=== PATIENT | male | born 1955 | race Caucasian/White ===

== ENCOUNTER 2016-09-02 10:30 | Emergency (ER) | payer OTHER ==
[~2016-09-02] VITALS: Ht 167.6 cm; Wt 84.5 kg
[2016-09-02 10:33] VITALS: Ht 167.6 cm; Wt 84.5 kg
[2016-09-02 12:28] LABS: ADD UMIC YES; URINE BILIRUBIN (Dip) 2+ (NEGATIVE); URINE BLOOD (Dip) 3+ (NEGATIVE); URINE COLOR DK. RED (YELLOW); URINE GLUCOSE (Dip) NEGATIVE (NEGATIVE); URINE KETONES (Dip) TRACE (NEGATIVE); URINE LEUKOCYTE ESTERASE (Dip) 1+ (NEGATIVE); URINE NITRITE (Dip) POSITIVE (NEGATIVE); URINE TOTAL PROTEIN (Dip) 4+ (NEGATIVE); URINE UROBILINOGEN (Dip) 1.0 E.U./dL (0.1-1.0)
[2016-09-02 12:46] LABS: BACTERIA,URINE MANY; ICTOTEST NEGATIVE (NEGATIVE); URINE RBCS >200 /HPF (0)
[2016-09-02] MEDS ORDERED: CIPROFLOXACIN 500 MG TAB PO ONE (13:00)
[2016-09-02] MEDS ORDERED: LIDOCAINE 1% (MDV) 20 ML INJ SC ONE (13:00)
[2016-09-02] MEDS ORDERED: CEFTRIAXONE 1 GM INJ IM ONE (13:00)
--- NOTE | 2016-09-02 13:34 | RADRPT ---
PROCEDURE: CT Abdomen and Pelvis without contrast. CLINICAL INDICATION: Abdominal pain TECHNIQUE: CT scan of the abdomen and pelvis was performed on a multidetector high-resolution CT s cann without intravenous contrast. Coronal and sagittal reformatted images were obtained from the axial source images. Images were reviewed on a high-resolution PACS workstation. The total exam CTD I equals 17mGy and the total exam DLP equals 994mGy-cm. One or more of the following dose reduction techniques were used: Automated exposure control, Adjustment of the mA and/or kV according to patien t size, and/or use of iterative reconstruction technique. COMPARISON: None. FINDINGS: Evaluation of the solid organs is limited given the lack of intravenous contrast administration. The lung bases are clear. The liver, pancreas, spleen, and adrenals are grossly unremarkable. No focal pericholecystic inflammatory changes. Mild distal bilateral hydroureter without evidence of hydronephrosis. No renal or ureteral stone. B ilateral renal cysts. No bowel obstruction. Normal-caliber appendix. No significant retroperitoneal lymphadenopathy, ascites or evidence of pneumoperitoneum. Aortoiliac atherosclerosis. 5.6 x 4.7 x 4.9 centimeter rounded hyperdense mass-like structure identified within the posterior bl adder. Irregular segmental areas of bladder wall thickening are also seen with multiple small bladder diver ticula . Degenerative changes of the spine. Laminectomy changes at L1-2. Grade 1 retrolisthesis of L5-S1. IMPRESSION: 5.6 x 4.7 x 4.9 centimeter rounded hyperdense mass-like structure identified within the posterior bl adder. The differential considerations are led by a hematoma. However, the possibility of a superimp osed infection or underlying bladder neoplasm cannot be excluded. Recommend correlation with direct visualization/cystoscopy. Mild distal bilateral hydroureter is seen without evidence of hydronephrosis. Irregular segmental areas of bladder wall thickening are also seen with multiple small bladder diver ticula . No renal or ureteral stone. RPTAT: AA .Jaylan Doherty MD, Date Time Electronically viewed and signed by .Jaylan Doherty MD, on 09/02/2016 13:34 .T/
[2016-09-02] MEDS ORDERED: CIPR500T4 PO (13:55)
--- NOTE | 2016-09-02 14:04 | ERD ---
ER Documentation Chief Complaint Date/Time DATE: 09/02/16 TIME: 14:02 Chief Complaint Complains of blood in the urine HPI 61-year-old male presents with blood in the urine since last night. His with clots and he has a slight warm sensation. 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 He has no fevers, vomiting, significant abdominal pain. Denies flank pain. ROS All systems reviewed and are negative except as per history of present illness. Medications Home Meds Active Scripts Ciprofloxacin Hcl* (Ciprofloxacin Hcl*) 500 Mg Tablet, 500 MG PO BID for 7 Days , TAB Prov:KENTRELL WILSON MD 09/02/16 Allergies Allergies: Coded Allergies: No Known Allergy (Verified Allergy, Unknown, 09/19/06) PMhx/Soc History of Surgery: No Anesthesia Reaction: No Hx Neurological Disorder: No Hx Respiratory Disorders: No Hx Cardiac Disorders: No Hx Psychiatric Problems: No Hx Miscellaneous Medical Probl: Yes (back pain,neurogenic bladder) Hx Alcohol Use: No Hx Substance Use: No Hx Tobacco Use: No Physical Exam Vitals Vital Signs Date Time Temp Pulse Resp B/P Pulse Ox O2 Delivery O2 Flow Rate FiO2 09/02/16 10:33 97.9 84 20 170/88 96 Physical Exam Const: [] Head: Atraumatic Eyes: Normal Conjunctiva ENT: Normal External Ears, Nose and Mouth. Neck: Full range of motion..~ No meningismus. Resp: Clear to auscultation bilaterally Cardio: Regular rate and rhythm, no murmurs Abd: Soft, non tender, non distended. Normal bowel sounds Skin: No petechiae or rashes Back: No midline or flank tenderness Ext: No cyanosis, or edema Neur: Awake and alert Psych: Normal Mood and Affect Results 24 hrs Laboratory Tests Test 09/02/16 11:32 Urine Bacteria MANY Urine Bilirubin 2+ Urine Clarity CLEAR Urine Color DK. RED Urine Glucose NEGATIVE% Urine Hemoglobin 3+ Urine Ictotest NEGATIVE Urine Ketones TRACE Urine Leukocyte Esterase 1+ Urine Microscopic RBC >200/HPF Urine Microscopic WBC 5-10/HPF Urine Nitrite POSITIVE Urine Specific [place] 1.020 Urine Total Protein 4+ Urine Urobilinogen 1.0 E.U./dL Urine pH 8.0 Current Medications Medications (Trade) Dose Ordered Sig/Fariba Route PRN Reason Start Time Stop Time Status Last Admin Dose Admin Ceftriaxone Sodium (Rocephin) 1 gm ONCE ONCE IM 09/02/16 13:00 09/02/16 13:01 DC 09/02/16 13:24 Lidocaine (Xylocaine 1% (Mdv) 20 ml) 20 ml ONCE ONCE SC 09/02/16 13:00 09/02/16 13:01 DC 09/02/16 13:24 Ciprofloxacin (Cipro) 500 mg ONCE ONCE PO 09/02/16 13:00 09/02/16 13:01 DC 09/02/16 13:24 Procedures/MDM Urine shows positive hemoglobin, nitrites and leukocytes and was sent for culture. Given the degree of gross blood a CT abdomen pelvis was performed which showed irregular shaped bladder with diverticula with likely hematoma in posterior bladder. No other acute findings. Patient was given Rocephin 1 g IM and Cipro 500 mg of mouth. Patient presents with signs of UTI and hematuria, likely exacerbated by neurogenic bladder diverticula. There are no signs or symptoms to suggest anemia, sepsis, patient currently appears safe for outpatient management. We discharged home with prescription of Cipro, instructions for clear fluids and referral to urology for further evaluation treatment. Patient was advised to return for fevers, vomiting, new or worsening symptoms. Patient is able to urinate with blood but patient was also advised to return for inability urinate given the size of the clot noted on CT scan. Departure Diagnosis: Primary Impression: UTI (urinary tract infection) Urinary tract infection type: acute cystitis Hematuria presence: with hematuria Qualified Code: N30.01 - Acute cystitis with hematuria Additional Impression: Hematuria Condition: Stable Patient Instructions: Understanding Urinary Tract Infections (UTIs), Hematuria Referrals: LEA SOLORZANO MD JOSE MANUEL,MALCOM Schaffer MD Additional Instructions: There are signs of urinary tract infection which are likely cause of symptoms especially given chronic findings and bladder. Recheck for fevers, vomiting, new symptoms. Recommend urology for cystoscopy for persistent bleeding. Recheck otherwise for persistent bleeding over 48 hours, or new worsening symptoms. May need authorization from primary care doctor for urology visit KENTRELL WILSON MD Sep 02, 2016 14:04
== END 2016-09-02 14:04 | disposition home or self-care (01) ==
LOC: FTE 10:30
DX: N30.01 Acute cystitis with hematuria (principal)
CPT/HCPCS: 74176; 81001; 81003; 87086; J0696; Z7610; 96372

== ENCOUNTER 2017-04-22 05:42 | Emergency (ER) | payer OTHER ==
[~2017-04-22] VITALS: Ht 177.8 cm; Wt 83.0 kg
[~2017-04-22 05:42] MED LIST: CIPR500T4 PO
[2017-04-22 05:43] VITALS: Ht 177.8 cm; Wt 83.0 kg
[2017-04-22] MEDS ORDERED: morphine 4 MG/ML VIAL IV STA (05:52)
[2017-04-22] MEDS ORDERED: SOD CHLORIDE 0.9% 1,000 ML IV STA ×2 (05:52→08:17)
[2017-04-22] MEDS ORDERED: ONDANSETRON 4 MG INJ IV STA ×2 (05:52→08:17)
[2017-04-22] MEDS ORDERED: KETOROLAC 30 MG INJ IV STA (05:52)
[2017-04-22] MEDS ORDERED: ATEN50TA PO (06:14)
[2017-04-22 06:25] VITALS: BP 147/74; RESP 18
[2017-04-22 06:28] LABS: BASOPHIL # 0.1 10^3/ul (0.0-0.1); BASOPHILS % 1.2 % (0.0-2.0); EOSINOPHILS # 0.3 10^3/ul (0.0-0.5); EOSINOPHILS % 3.6 % (0.0-7.0); HEMATOCRIT 43.2 % (42.0-52.0); HEMOGLOBIN 14.5 g/dl (14.0-18.0); LYMPHOCYTES # 3.5 10^3/ul (0.8-2.9); LYMPHOCYTES % 41.1 % (15.0-51.0); MEAN CORPUSCULAR HEMOGLOBIN 34.7 pg (29.0-33.0); MEAN CORPUSCULAR HGB CONC 33.6 g/dl (32.0-37.0); MEAN CORPUSCULAR VOLUME 103.3 fl (82.0-101.0); MEAN PLATELET VOLUME 11.8 fl (7.4-10.4); MONOCYTE # 0.9 10^3/ul (0.3-0.9); NEUTROPHIL # 3.7 10^3/ul (1.6-7.5); NEUTROPHILS % 42.6 % (39.0-77.0); PLATELET COUNT 291 10^3/UL (140-415); RED BLOOD COUNT 4.18 10^6/ul (4.70-6.10); RED CELL DISTRIBUTION WIDTH 12.6 % (11.5-14.5); WHITE BLOOD COUNT 8.6 10^3/ul (4.8-10.8)
[2017-04-22] MEDS ORDERED: DIPHENHYDRAMINE 50 MG INJ ONE (06:30)
--- NOTE | 2017-04-22 06:43 | ERD ---
ER Documentation Chief Complaint Date/Time DATE: 04/22/17 TIME: 06:41 Chief Complaint Left flank pain since 3 hours ago HPI This is a 62-year-old male with past medical history of neurogenic bladder that presents to the emergency department complaining of sudden onset of left flank pain that awoke him from sleep 3 hours prior to arrival. He states the pain was 10 out of 10 in intensity. The pain was a sharp shooting pain and began to radiate to the left lower quadrant. He felt nauseous but did not experience any emesis. He denies any recent normal blunt or penetrating chest or abdominal wall trauma. He denies any gross hematuria. He has had no fevers or shaking or chills. He denies any similar pain in the past. There is no alleviating or exacerbating factors to the pain. He did not take any analgesic medication prior to arrival. He did state that he became diaphoretic but denies any chest pain or pressure that radiates to the neck or back or jaw. ROS All systems reviewed and are negative except as per history of present illness. Medications Home Meds Reported Medications Atenolol* (Atenolol*) 50 Mg Tablet, 50 MG PO BID, #60 TAB 04/22/17 Discontinued Scripts Ciprofloxacin Hcl* (Ciprofloxacin Hcl*) 500 Mg Tablet, 500 MG PO BID for 7 Days , TAB Prov:KENTRELL WILSON MD 09/02/16 Allergies Allergies: Coded Allergies: No Known Allergy (Verified Allergy, Unknown, 09/19/06) PMhx/Soc History of Surgery: No Anesthesia Reaction: No Hx Neurological Disorder: No Hx Respiratory Disorders: No Hx Cardiac Disorders: No Hx Psychiatric Problems: No Hx Miscellaneous Medical Probl: Yes (back pain,neurogenic bladder) Hx Alcohol Use: No Hx Substance Use: No Hx Tobacco Use: No Smoking Status: Unknown if ever smoked Physical Exam Vitals Vital Signs Date Time Temp Pulse Resp B/P Pulse Ox O2 Delivery O2 Flow Rate FiO2 04/22/17 06:25 18 147/74 97 Room Air 04/22/17 05:43 97.6 55 20 197/91 98 Physical Exam Constitutional:Well-developed. Well-nourished. He appeared to be in a significant amount discomfort secondary to pain HEENT:Normocephalic. Atraumatic.Pupils were equal round reactive to light. Moist mucous membranes.No tonsillar exudates. Neck: No nuchal rigidity. No lymphadenopathy. No posterior cervical spine tenderness or step-offs. Respiratory: Not using accessory muscles of respiration.Lungs were clear to auscultation bilaterally. No rhonchi. No rales. No wheezing. Cardiovascular: Regular rate regular rhythm.No murmurs. No rubs were appreciated.S1, S2 normal. Distal pulses are palpable 2+ bilaterally. GI: Abdomen was soft. Left CVA tenderness. Non Distended. No pulsatile abdominal masses or bruits. No rebound. No guarding. Bowel sounds were present and normal. Muscle skeletal: Full range of motion of both the upper and lower extremities bilaterally.Normal muscle tone.No assymetrical calf tenderness or swelling. Skin: No petechia, no purpura. No lesions on the palms or the soles of the feet. No maculopapular rash. NEURO: Patient was alert, awake, orientated x3.No facial droop. Gait observed and normal with no ataxia.Speech had regular rate and rhythm. No focal neurological deficits. Result Diagram: 04/22/17 0604/22/17 0605 Results 24 hrs Laboratory Tests Test 04/22/17 06:05 White Blood Count 8.610^3/ul Red Blood Count 4.1810^6/ul Hemoglobin 14.5g/dl Hematocrit 43.2% Mean Corpuscular Volume 103.3fl Mean Corpuscular Hemoglobin 34.7pg Mean Corpuscular Hemoglobin Concent 33.6g/dl Red Cell Distribution Width 12.6% Platelet Count 78797^3/UL Mean Platelet Volume 11.8fl Neutrophils % 42.6% Lymphocytes % 41.1% Monocytes % 11.0% Eosinophils % 3.6% Basophils % 1.2% Nucleated Red Blood Cells % 0.0/100WBC Neutrophils # 3.710^3/ul Lymphocytes # 3.510^3/ul Monocytes # 0.910^3/ul Eosinophils # 0.310^3/ul Basophils # 0.110^3/ul Nucleated Red Blood Cells # 0.010^3/ul Sodium Level 142mmol/L Potassium Level 4.0mmol/L Chloride Level 110mmol/L Carbon Dioxide Level 21mmol/L Anion Gap 15 Blood Urea Nitrogen 20mg/dl Creatinine 1.10mg/dl Glucose Level 128mg/dl Calcium Level 9.0mg/dl Total Bilirubin 0.2mg/dl Direct Bilirubin 0.00mg/dl Indirect Bilirubin 0.2mg/dl Aspartate Amino Transf (AST/SGOT) 22IU/L Alanine Aminotransferase (ALT/SGPT) 38IU/L Alkaline Phosphatase 102IU/L Total Protein 7.1g/dl Albumin 4.0g/dl Globulin 3.10g/dl Albumin/Globulin Ratio 1.29 Lipase 54U/L Current Medications Medications (Trade) Dose Ordered Sig/Fariba Route PRN Reason Start Time Stop Time Status Last Admin Dose Admin Sodium Chloride (NS) 1,000 ml @ 1,000 mls/hr Q1H STAT IV 04/22/17 05:52 04/22/17 06:51 DC 04/22/17 05:58 Morphine Sulfate (morphine) 4 mg ONCE STAT IV 04/22/17 05:52 04/22/17 05:53 DC 04/22/17 05:58 Ondansetron HCl (Zofran Inj) 4 mg ONCE STAT IV 04/22/17 05:52 04/22/17 05:53 DC 04/22/17 05:52 Ketorolac Tromethamine (Toradol) 30 mg ONCE STAT IV 04/22/17 05:52 04/22/17 05:53 DC 04/22/17 05:58 Diphenhydramine HCl (Benadryl) 50 mg STK-MED ONCE .ROUTE 04/22/17 06:30 04/22/17 06:31 DC Diphenhydramine HCl 50 mg 50 mg ONCE ONCE IV 04/22/17 07:00 04/22/17 07:01 DC 04/22/17 06:43 Sodium Chloride (NS) 1,000 ml @ 1,000 mls/hr Q1H STAT IV 04/22/17 08:17 04/22/17 09:16 Hydromorphone HCl (Dilaudid) 1 mg ONCE STAT IV 04/22/17 08:17 04/22/17 08:19 DC Ondansetron HCl 4 mg 4 mg ONCE STAT IV 04/22/17 08:17 04/22/17 08:19 DC Ceftriaxone Sodium (Rocephin) 50 ml @ 100 mls/hr ONCE ONCE IVPB 04/22/17 08:30 04/22/17 08:59 Procedures/MDM The patient presented to the emergency department with back pain. My differential diagnosis included but was not limited to spinal origins of the pain such as fracture, osteomyelitis, epidural abscess, neoplasm, spondylolishtesis, discogenic, cauda equina syndrome or musculoligamentous. Nonspinal causes such as AAA, upper UTI, renal colic, aortic dissection, abdominal neoplasm were also considered as an etiology into their pain. The patient presented with a significant amount discomfort and therefore was given IV analgesic medication of morphine Zofran. The patient had a CT scan of the abdomen that was ordered and reviewed by myself and there is no evidence of nephrolithiasis however the findings of the CT scan indicated the followin. Urinary bladder wall is thickened and trabeculated, with demonstration multiple bladder diverticula. Findings are compatible with muscular hypertrophy secondary to chronic urinary retention, similar in appearance to the prior CT. 2. There is mild left hydroureteronephrosis to the level of the urinary bladder , without evidence of ureteral calculus, mildly increased when compared to the prior CT. Findings may indicate partial obstruction at the left UVJ secondary to bladder wall thickening, though obstructive mass is not confidently excluded. Consider contrast enhanced CT urogram for further evaluation. 3. Areas of chronic renal cortical scarring are noted bilaterally. 4. Coronary arterial and aortoiliac atherosclerotic calcifications are present. 5. No lymphadenopathy or focal acute inflammatory process is identified. The patient had no electrolyte abnormalities. The patient does have history of neurogenic bladder but given the severity of his symptoms and he states he has had frequent urinary tract infections in the past he did state he would prefer to be treated with a dose of IV antibiotics which I was in agreement with. Urine culture was obtained. The patient was given IV ceftriaxone. The patient was given further analgesic medication of Dilaudid and Zofran. Afterwards the patient was discharged home with oral antibiotics which included Keflex. The patient was discharged home in fair condition. They were instructed to return to the emergency department at any time if there was any worsening of their condition. The patient stated they would follow up with their PCP in the next 24-48 hours to initiate a suitable medication regimen under the care of their PCP as well as to allow their PCP to monitor any drug reactions. The patient was discharged home with prescriptions after they gave informed consent to the new medication. They were also fully informed by myself on the adverse effects and adverse drug interactions in order to provide adequate safeguards to prevent possible adverse reactions to medications. And also indicated he is awaiting for a cystoscopy to performed by his urologist who performed on an outpatient basis. Departure Diagnosis: Primary Impression: Flank pain Additional Impression: UTI (urinary tract infection) Urinary tract infection type: acute cystitis Hematuria presence: without hematuria Qualified Code: N30.00 - Acute cystitis without hematuria Condition: JOSHUA Leigh Apr 22, 2017 06:43
[2017-04-22 06:54] LABS: ALBUMIN/GLOBULIN RATIO 1.29; BILIRUBIN,INDIRECT 0.2 mg/dl (0-1.1); BILIRUBIN,TOTAL 0.2 mg/dl (0.2-1.3); CREATININE 1.1 mg/dl (0.61-1.24); TOTAL PROTEIN 7.1 g/dl (6.1-8.1)
[2017-04-22] MEDS ORDERED: DIPHENHYDRAMINE 50 MG INJ IV ONE (07:00)
--- NOTE | 2017-04-22 07:54 | RADRPT ---
PROCEDURE: CT Abdomen and Pelvis without contrast. CLINICAL INDICATION: Abdominal pain TECHNIQUE: CT of the abdomen and pelvis was performed on a multi-detector scanner without IV contr ast. Coronal and sagittal images were reformatted from the axial data set. One or more of the foll owing dose reduction techniques were used: automated exposure control, adjustment of the mA and/or k V according to patient size, use of iterative reconstruction technique. CTDI = 15.95 mGy. DLP = 104 4.82 mGy-cm. COMPARISON: CT, 09/02/2016 FINDINGS: The lung bases are clear. The heart size is normal, without pericardial effusion. Coronary arteria l calcifications are noted. Liver, gallbladder, biliary tree, pancreas, spleen and adrenal glands ar e unremarkable. Bilateral benign renal cysts are noted. Areas of chronic renal cortical scarring are seen bilaterally. There is mild left hydroureteronephrosis to the level of the urinary bladder, wit hout evidence of ureteral calculus. The stomach is partially collapsed, but appears grossly unremark able. The aorta is of normal caliber. Aortic vascular calcifications are present. There is no retroperit john lymphadenopathy. The joan hepatis region is clear. No bowel obstruction, free intraperitoneal air or abscess is identified. The appendix is well visual ized and normal. There is no diverticulosis, diverticulitis or colitis. Urinary bladder wall is circ umferentially thickened and trabeculated, with multiple diverticula noted, compatible with muscular hypertrophy secondary to chronic urinary retention. Prostate gland is grossly unremarkable. No pelvi c mass, free fluid or lymphadenopathy is identified. The surrounding osseous structures are remarkable for degenerative enthesopathy of the spine. No os teolytic or osteoblastic lesion is detected. The patient is status post L2 laminectomy. IMPRESSION: 1. Urinary bladder wall is thickened and trabeculated, with demonstration multiple bladder divertic susan. Findings are compatible with muscular hypertrophy secondary to chronic urinary retention, simil ar in appearance to the prior CT. 2. There is mild left hydroureteronephrosis to the level of the urinary bladder, without evidence o f ureteral calculus, mildly increased when compared to the prior CT. Findings may indicate partial o bstruction at the left UVJ secondary to bladder wall thickening, though obstructive mass is not conf idently excluded. Consider contrast enhanced CT urogram for further evaluation. 3. Areas of chronic renal cortical scarring are noted bilaterally. 4. Coronary arterial and aortoiliac atherosclerotic calcifications are present. 5. No lymphadenopathy or focal acute inflammatory process is identified. RPTAT: AAOO .Jd Borges MD, Date Time Electronically viewed and signed by .Jd Borges MD, on 04/22/2017 07:53 .R/
[2017-04-22] MEDS ORDERED: HYDROmorphONE 1 MG/ML SYG IV STA (08:17)
[2017-04-22] MEDS ORDERED: CEFTRIAXONE 1 GM/50 ML (PMX) 50 ML IVPB ONE (08:30)
[2017-04-22 09:44] LABS: ADD UMIC YES; UR ASCORBIC ACID NEGATIVE (NEGATIVE); UR BACTERIA MODERATE /HPF (NONE SEEN); UR BILIRUBIN (Dip) NEGATIVE (NEGATIVE); UR BLOOD (Dip) 1+ mg/dL (NEGATIVE); UR BUDDING YEAST MANY /HPF (NONE SEEN); UR CLARITY TURBID (CLEAR); UR COLOR YELLOW (YELLOW); UR GLUCOSE (Dip) NEGATIVE (NEGATIVE); UR KETONES (Dip) TRACE mg/dL (NEGATIVE); UR LEUKOCYTE ESTERASE (Dip) 1+ Leu/ul (NEGATIVE); UR NITRITE (Dip) NEGATIVE (NEGATIVE); UR NONSQUAMOUS EPITHELIAL CELL 4 /HPF (NONE SEEN); UR RBC 28 /HPF (0-5); UR SPECIFIC GRAVITY (Dip) 1.019 (1.003-1.030); UR SQUAMOUS EPITHELIAL CELL FEW /HPF (FEW); UR TOTAL PROTEIN (Dip) 2+ mg/dl (NEGATIVE); UR UROBILINOGEN (Dip) 1+ mg/dL (NEGATIVE)
[2017-04-22] MEDS ORDERED: HYDR-906 PO (09:50)
[2017-04-22] MEDS ORDERED: CEPH-443 PO (09:50)
== END 2017-04-22 10:15 | disposition home or self-care (01) ==
LOC: E/R 05:42
DX: N30.00 Acute cystitis without hematuria (principal)
CPT/HCPCS: 36415; 74176; 80053; 81001; 83690; 85025; 96374; 96375; 96376; 99285; J0696; J1170; J1200; J1885; J2270; J2405; J7030

== ENCOUNTER 2017-05-16 16:44 | Emergency (ER) | payer OTHER ==
[~2017-05-16] VITALS: Ht 177.8 cm; Wt 79.0 kg
[~2017-05-16 16:44] MED LIST changes: +ATEN50TA PO; +CEPH-443 PO; -CIPR500T4 PO; +HYDR-906 PO
[2017-05-16 17:13] VITALS: Ht 177.8 cm; Wt 79.0 kg
[2017-05-16 19:23] LABS: URINE BLOOD (Dip) POC 3+ (NEGATIVE)
[2017-05-16] MEDS ORDERED: CIPR500T4 PO (19:34)
[2017-05-16] MEDS ORDERED: HYDR-906 PO (19:39)
[2017-05-16] MEDS ORDERED: NAPR-260 PO (19:39)
[2017-05-16] MEDS ORDERED: CEFTRIAXONE 1 GM INJ IM ONE (20:00)
[2017-05-16] MEDS ORDERED: LIDOCAINE 1% (MDV) 20 ML INJ SC ONE (20:00)
--- NOTE | 2017-05-17 19:08 | ERD ---
ER Documentation Chief Complaint Chief Complaint pelvic pain, painful urination urgency and dribbling x2 days HPI Patient is a 62-year-old male presenting to the emergency department with complaints of urinary retention and dribbling from his urethra intermittently for the past 2 days. The patient was here 3 weeks ago with similar complaints and given a prescription for Keflex, however he states that this antibiotic did not work as well as Cipro. He has received Cipro in the past for urinary tract infections. The patient states he has recurring UTI secondary to urogenital bladder. Symptoms are constant. He notes pain in his penis which radiates to his suprapubic region. He denies fevers, chills, or other symptoms at this time. ROS All systems reviewed and are negative except as per history of present illness. Medications Home Meds Active Scripts Naproxen* (Naprosyn*) 500 Mg Tablet, 500 MG PO BID Y for PAIN AND/OR INFLAMMATION, #20 TAB Prov:EDDY STEPHENSON PA-C 05/16/17 Hydrocodone/Acetaminophen ([place] 5-325 Tablet) 1 Each Tablet, 1 TAB PO Q6H Y for PAIN, #7 TAB Prov:EDDY STEPHENSON PA-C 05/16/17 Ciprofloxacin Hcl* (Ciprofloxacin Hcl*) 500 Mg Tablet, 500 MG PO BID for 10 Days , #20 TAB Prov:EDDY STEPHENSON PA-C 05/16/17 Hydrocodone/Acetaminophen ([place] 5-325 Tablet) 1 Each Tablet, 1 TAB PO Q6H Y for PAIN, #7 TAB Prov:JOSHUA HOLMAN 04/22/17 Cephalexin* (Keflex*) 500 Mg Capsule, 500 MG PO QID for 10 Days, CAP Prov:JOSHUA HOLMAN 04/22/17 Reported Medications Atenolol* (Atenolol*) 50 Mg Tablet, 50 MG PO BID, #60 TAB 04/22/17 Allergies Allergies: Coded Allergies: No Known Allergy (Verified , 05/16/17) PMhx/Soc History of Surgery: Yes (hernias, orchiectomy, tumor spinal chord) Anesthesia Reaction: No Hx Neurological Disorder: No Hx Respiratory Disorders: No Hx Cardiac Disorders: No Hx Psychiatric Problems: No Hx Miscellaneous Medical Probl: Yes (back pain,neurogenic bladder) Hx Alcohol Use: No Hx Substance Use: No Hx Tobacco Use: No Smoking Status: Never smoker Physical Exam Vitals Vital Signs Date Time Temp Pulse Resp B/P Pulse Ox O2 Delivery O2 Flow Rate FiO2 05/16/17 17:13 98.1 76 18 142/87 95 Physical Exam Const: Nontoxic, well-appearing male in no acute distress. Head: Atraumatic Eyes: Normal Conjunctiva ENT: Normal External Ears, Nose and Mouth. Neck: Full range of motion..~ No meningismus. Resp: Clear to auscultation bilaterally Cardio: Regular rate and rhythm, no murmurs Abd: Soft, non tender, non distended. Normal bowel sounds there is no suprapubic tenderness to palpation. Skin: No petechiae or rashes Back: No midline or flank tenderness. No CVA tenderness. Ext: No cyanosis, or edema Neur: Awake and alert Psych: Normal Mood and Affect Results 24 hrs Laboratory Tests Test 05/16/17 19:23 Bedside Urine pH (LAB) 6.0 Bedside Urine Protein (LAB) 3+ Bedside Urine Glucose (UA) 0.1% Bedside Urine Ketones (LAB) Trace Bedside Urine Blood 3+ Bedside Urine Nitrite (LAB) Positive Bedside Urine Leukocyte Esterase (L 3+ Current Medications Medications (Trade) Dose Ordered Sig/Fariba Route PRN Reason Start Time Stop Time Status Last Admin Dose Admin Ceftriaxone Sodium (Rocephin) 1 gm ONCE ONCE IM 05/16/17 20:00 05/16/17 20:01 DC 05/16/17 19:52 Lidocaine (Xylocaine 1% (Mdv) 20 ml) 20 ml ONCE ONCE SC 05/16/17 20:00 05/16/17 20:01 DC 05/16/17 19:52 Procedures/MDM 62-year-old male presents to the emergency department with complaints of urinary retention. Urine dip is concerning for urinary tract infection with uncomplicated pyelonephritis. Patient was afebrile in the department. He was nontoxic-appearing. I believe he is stable for outpatient management after given 1 g IM Rocephin in the department. He was given a prescription for ciprofloxacin and pain medication. He agreed with the discharge plan a diagnosis. He was advised to return immediately for any new or worsening symptoms. The patient is to follow-up with his primary care physician within the next 1-2 days. Low suspicion for sepsis or other emergencies at time of discharge. Departure Diagnosis: Primary Impression: Urinary tract infection Urinary tract infection type: acute cystitis Hematuria presence: without hematuria Qualified Code: N30.00 - Acute cystitis without hematuria Condition: Fair Patient Instructions: Understanding Urinary Tract Infections (UTIs) Additional Instructions: Follow up with your PCP within the next 1-3 days for a repeat evaluation. If you require a referral to a specialist, your Primary Care Provider may be able to provide this for you. In most patient cases, a referral is not required. If you have further questions regarding this matter, please ask your Primary Care Provider. Return the the emergency department immediately if symptoms worsen or change. If you have any questions regarding medications, ask your pharmacist or us before you leave. If any adverse reactions, occur while taking your medications, discontinue the treatment and return to the emergency department immediately. If any new or worsening symptoms, uncontrolled fevers, or other unexplained symptoms occur, return to the emergency department immediately. Take your medications as directed, and complete the entire course of treatment. EDDY STEPHENSON PA-C May 17, 2017 19:08
== END 2017-05-16 20:01 | disposition home or self-care (01) ==
LOC: FTE 16:44
DX: N30.00 Acute cystitis without hematuria (principal)
CPT/HCPCS: 81003; 87086; J0696; 96372

== ENCOUNTER 2017-07-07 11:32 | Emergency (ER) | payer OTHER ==
[~2017-07-07] VITALS: Ht 157.5 cm; Wt 77.2 kg
[~2017-07-07 11:32] MED LIST changes: +CIPR500T4 PO; +NAPR-260 PO
[2017-07-07 11:37] VITALS: Ht 157.5 cm; Wt 77.2 kg
[2017-07-07 13:09] LABS: ADD UMIC YES; UR AMORPHOUS CRYSTAL FEW /HPF (NONE SEEN); UR ASCORBIC ACID NEGATIVE (NEGATIVE); UR BACTERIA FEW /HPF (NONE SEEN); UR BILIRUBIN (Dip) NEGATIVE (NEGATIVE); UR BLOOD (Dip) 1+ mg/dL (NEGATIVE); UR CLARITY CLOUDY (CLEAR); UR COLOR YELLOW (YELLOW); UR GLUCOSE (Dip) NEGATIVE (NEGATIVE); UR KETONES (Dip) NEGATIVE (NEGATIVE); UR LEUKOCYTE ESTERASE (Dip) 2+ Leu/ul (NEGATIVE); UR MUCUS FEW /HPF (NONE SEEN); UR NITRITE (Dip) NEGATIVE (NEGATIVE); UR NONSQUAMOUS EPITHELIAL CELL 2 /HPF (NONE SEEN); UR RBC 6 /HPF (0-5); UR SPECIFIC GRAVITY (Dip) 1.016 (1.003-1.030); UR TOTAL PROTEIN (Dip) 1+ mg/dl (NEGATIVE); UR UROBILINOGEN (Dip) 2+ mg/dL (NEGATIVE)
[2017-07-07] MEDS ORDERED: CIPR500T4 PO (13:16)
--- NOTE | 2017-07-07 16:40 | ERD ---
ER Documentation Chief Complaint Chief Complaint hematuria has hx of uti HPI 62-year-old male complaining of blood in his urine since last night. Patient stated that he has neurogenic bladder, he has been self cathing for 1 year. He has not changed his catheter in the past year. Patient stated that he was instructed by urologist to soak the catheter in alcohol for cleaning. He has frequent urinary tract infection, last episode was about 2 month ago. He has been taking Cipro for his UTI. Patient reports burning sensation when he advancing the catheter. Denies fever or chills. Denies flank pain. Denies scrotal pain. ROS All systems reviewed and are negative except as per history of present illness. Medications Home Meds Active Scripts Ciprofloxacin Hcl* (Ciprofloxacin Hcl*) 500 Mg Tablet, 500 MG PO BID for 14 Days , TAB Prov:THERESE TELLES SENIOR SOFTWARE TEST ENGINEER 07/07/17 Naproxen* (Naprosyn*) 500 Mg Tablet, 500 MG PO BID Y for PAIN AND/OR INFLAMMATION, #20 TAB Prov:EDDY STEPHENSON PA-C 05/16/17 Hydrocodone/Acetaminophen ([place] 5-325 Tablet) 1 Each Tablet, 1 TAB PO Q6H Y for PAIN, #7 TAB Prov:EDDY STEPHENSON PA-C 05/16/17 Ciprofloxacin Hcl* (Ciprofloxacin Hcl*) 500 Mg Tablet, 500 MG PO BID for 10 Days , #20 TAB Prov:EDDY STEPHENSON PA-C 05/16/17 Hydrocodone/Acetaminophen ([place] 5-325 Tablet) 1 Each Tablet, 1 TAB PO Q6H Y for PAIN, #7 TAB Prov:JOSHUA HOLMAN 04/22/17 Cephalexin* (Keflex*) 500 Mg Capsule, 500 MG PO QID for 10 Days, CAP Prov:JOSHUA HOLMAN 04/22/17 Reported Medications Atenolol* (Atenolol*) 50 Mg Tablet, 50 MG PO BID, #60 TAB 04/22/17 Allergies Allergies: Coded Allergies: No Known Allergy (Verified , 05/16/17) PMhx/Soc History of Surgery: Yes (hernias, orchiectomy, tumor spinal chord) Anesthesia Reaction: No Hx Neurological Disorder: No Hx Respiratory Disorders: No Hx Cardiac Disorders: No Hx Psychiatric Problems: No Hx Miscellaneous Medical Probl: Yes (back pain,neurogenic bladder) Hx Alcohol Use: No Hx Substance Use: No Hx Tobacco Use: No Physical Exam Vitals Vital Signs Date Time Temp Pulse Resp B/P Pulse Ox O2 Delivery O2 Flow Rate FiO2 07/07/17 11:37 99.3 66 18 136/77 100 Physical Exam General: Well-developed, well-nourished, conscious and coherent, in no distress Skin: Warm and dry without rash, good texture and turgor Head: Normocephalic without evidence of trauma Eyes: Sclera and conjunctivae normal; pupils equal, round, and reactive to light; extraocular movements are intact Chest: Normal AP diameter. Good expansion without retractions. Nontender. Lungs are clear to auscultate bilaterally with good tidal volume Heart: Regular rate and rhythm. No murmur, rub, or gallops heard Back: Without spinal or CVA tenderness Pelvis: Suprapubic tenderness Extremities: Full range of motion. Good strength bilaterally. No clubbing, cyanosis, or edema. Peripheral pulses are intact. Sensation intact Neuro: Alert and oriented 4, GCS 15. Cranial nerves grossly intact. Motor and sensory exams nonfocal. Moves all extremities. Speech clear. Gait normal Results 24 hrs Laboratory Tests Test 07/07/17 12:45 Urine Color YELLOW Urine Clarity CLOUDY Urine pH 7.0 Urine Specific [place] 1.016 Urine Ketones NEGATIVEmg/dL Urine Nitrite NEGATIVEmg/dL Urine Bilirubin NEGATIVEmg/dL Urine Urobilinogen 2+mg/dL Urine Leukocyte Esterase 2+Alie/ul Urine Microscopic RBC 6/HPF Urine Microscopic WBC > 182/HPF Urine Amorphous Crystals FEW/HPF Urine Bacteria FEW/HPF Urine Mucus FEW/HPF Urine Hemoglobin 1+mg/dL Urine Glucose NEGATIVEmg/dL Urine Total Protein 1+mg/dl Procedures/MDM Well-appearing 62-year-old male present ED with hematuria and dysuria. UA showed 2+ leukocyte, negative nitrite, more than 182 WBC. Patient likely have a urinary tract infection, secondary to catheter use. Patient is given a new catheter in the ED. I advised patient to follow-up with his urologist to discuss on changing his catheter regularly. I doubt pyelonephritis, epididymitis or orchitis. Patient appears well, stable for discharge and outpatient management. Medical decision making shared with patient and family. Education provided to patient and family. Patient and family expressed understanding of the plan. Medications on discharge: Cipro. Follow-up: Primary care provider in 2-3 days or return to ED if worse. Disclaimer: Inadvertent spelling and grammatical errors are likely due to EHR/ dictation software use and do not reflect on the overall quality of patient care. Also, please note that the electronic time recorded on this note does not necessarily reflect the actual time of the patient encounter. Departure Diagnosis: Primary Impression: Urinary tract infection Urinary tract infection type: acute cystitis Hematuria presence: with hematuria Qualified Code: N30.01 - Acute cystitis with hematuria Condition: Stable Patient Instructions: Urinary Tract Infections in Men Referrals: REGAN DAVILA MD Additional Instructions: Call your primary care doctor TOMORROW for an appointment during the next 2-3 days.See the doctor sooner or return here if your condition worsens before your appointment time. THERESE TELLES NP Jul 07, 2017 16:40
== END 2017-07-07 13:52 | disposition home or self-care (01) ==
LOC: FTE 11:32
DX: N30.01 Acute cystitis with hematuria (principal)
CPT/HCPCS: 81001; 99283; A4310

== ENCOUNTER 2018-03-26 10:42 | Emergency (ER) | END 2018-03-26 11:50 | disposition home or self-care (01) ==

== ENCOUNTER 2018-09-28 06:59 | Day surgery (SDC) | payer OTHER ==
[~2018-09-28] VITALS: Ht 182.9 cm; Wt 76.5 kg
[~2018-09-28 06:59] MED LIST changes: +HYDR-4011 PO; -HYDR-906 PO; -NAPR-260 PO; +NAPR-985 PO
[2018-09-28] MEDS ORDERED: AMLODIPINE PO (07:29)
[2018-09-28 07:30] VITALS: Ht 182.9 cm; Wt 76.5 kg
[2018-09-28 08:10] VITALS: BP 129/60; PULSE 61; RESP 14
[2018-09-28] MEDS ORDERED: PROPOFOL 60 ML ONE (08:31)
[2018-09-28] MEDS ORDERED: LIDOCAINE 2% (SDV) 5 ML INJ ONE (08:31)
--- NOTE | 2018-09-28 08:31 | PREAC ---
Date/Time of Note Date/Time of Note DATE: 09/28/18 TIME: 08:29 Anesthesia Eval and Record Evaluation Time Pre-Procedure Interview DATE: 09/28/18 TIME: 08:29 Age 63 Sex male NPO: 8 hrs Preoperative diagnosis Colon screening Planned procedure Colonoscopy Past Medical History Past Medical History: Includes Cardio: HTN Surgery & Anesthesia Issues No known issue Meds Anticoagulation: No Beta Katherine within 24 hr: Yes Reported Medications [Amlodipine] No Conflict Check, PO 09/28/18 Atenolol* (Atenolol*) 50 Mg Tablet, 50 MG PO BID, #60 TAB 04/22/17 Discontinued Scripts Ciprofloxacin Hcl* (Ciprofloxacin Hcl*) 500 Mg Tablet, 500 MG PO BID for 7 Days, TAB Prov:LESLEE GOMEZ MD 03/26/18 Ciprofloxacin Hcl* (Ciprofloxacin Hcl*) 500 Mg Tablet, 500 MG PO BID for 14 Days, TAB Prov:THERESE TELLES CUSTOMS INVESTIGATOR 07/07/17 Naproxen* (Naprosyn*) 500 Mg Tablet, 500 MG PO BID PRN for PAIN AND/OR INFLAMMATION, #20 TAB Prov:EDDY STEPHENSON PA-C 05/16/17 Hydrocodone/Acetaminophen ([place] 5-325 Tablet) 1 Each Tablet, 1 TAB PO Q6H PRN for PAIN, #7 TAB Prov:EDDY STEPHENSON PA-C 05/16/17 Ciprofloxacin Hcl* (Ciprofloxacin Hcl*) 500 Mg Tablet, 500 MG PO BID for 10 Days, #20 TAB Prov:EDDY STEPHENSON PA-C 05/16/17 Hydrocodone/Acetaminophen ([place] 5-325 Tablet) 1 Each Tablet, 1 TAB PO Q6H PRN for PAIN, #7 TAB Prov:JOSHUA HOLMAN MD 04/22/17 Cephalexin* (Keflex*) 500 Mg Capsule, 500 MG PO QID for 10 Days, CAP Prov:JOSHUA HOLMAN MD 04/22/17 Meds reviewed: Yes Allergies Coded Allergies: No Known Allergy (Verified , 05/16/17) Allergies Reviewed: Yes Labs/Studies Labs Reviewed: Reviewed by anesthesiologist test: N/A Studies: ECG Pre-procedure Exam Last vitals Vital Signs Date Temp Pulse Resp B/P (MAP) Pulse Ox O2 O2 Flow FiO2 Time Delivery Rate 3/7/19 98.7 61 14 129/60 95 Room Air 08:10 (83) Airway: Adequate mouth opening, Adequate thyromental dist Mallampati: Mallampati II Teeth: Normal Lung: Normal Heart: Normal ASA Physical Status ASA physical status: 3 Emergency: None Planned Anesthetic General/MAC: MAC Planned Pain Management Parenteral pain med Pre-operative Attestations Prior to commencing anesthesia and surgery, the patient was re-evaluated, there was verification of: *The patient's identity *The results of appropriate recent lab work and preoperative vital signs *The above evaluation not changing prior to induction *Anesthetic plan, risk benefits, alternative and complications discussed with patient/family; questions answered; patient/family understands, accepts and wishes to proceed. JOSH SALEH MD Sep 28, 2018 08:31
[2018-09-28] MEDS ORDERED: PROPOFOL 20 ML ONE (08:58)
[2018-09-28] MEDS ORDERED: FENTAnyl 50 MCG/ML VIAL ONE (08:59)
--- NOTE | 2018-09-28 09:10 | PAC ---
Date/Time of Note Date/Time of Note DATE: 09/28/18 TIME: 09:09 Post-Anesthesia Notes Post-Anesthesia Note Last documented vital signs Vital Signs Date Temp Pulse Resp B/P (MAP) Pulse Ox O2 O2 Flow FiO2 Time Delivery Rate 09/28/18 98.7 61 14 129/60 95 Room Air 08:10 (83) Activity: WNL Respiratory function: WNL Cardiovascular function: WNL Mental status: Baseline Pain reasonably controlled: Yes Hydration appropriate: Yes Nausea/Vomiting absent: Yes Comments BP:110/56, P:68, Spo2:100%, T:98,8 JOSH SALEH MD Sep 28, 2018 09:10
[2018-09-28] MEDS ORDERED: DIPHENHYDRAMINE 50 MG INJ IV PRN (09:30)
[2018-09-28] MEDS ORDERED: ONDANSETRON 4 MG INJ IV PRN (09:30)
[2018-09-28] MEDS ORDERED: FENTAnyl 50 MCG/ML VIAL IV PRN (09:30)
[2018-09-28] MEDS ORDERED: METOCLOPRAMIDE 10 MG INJ IV PRN (09:30)
[2018-09-28 09:33] VITALS: BP 118/68; PULSE 54; RESP 16
== END 2018-09-28 12:02 | disposition home or self-care (01) ==
LOC: GIL 06:59
PROVIDERS: ATTEND Internal Medicine Gastroenterology
DX: Z12.11 Encounter for screening for malignant neoplasm of colon (principal); D12.4 Benign neoplasm of descending colon; K64.4 Residual hemorrhoidal skin tags; I10 Essential (primary) hypertension
CPT/HCPCS: 45385; 88305; J3010

== ENCOUNTER 2018-10-19 16:30 | Emergency (ER) | payer OTHER ==
[~2018-10-19] VITALS: Ht 167.6 cm; Wt 77.7 kg
[~2018-10-19 16:30] MED LIST changes: +AMLODIPINE PO; -CEPH-443 PO; -CIPR500T4 PO; -HYDR-4011 PO; -NAPR-985 PO
[2018-10-19 16:50] VITALS: Ht 167.6 cm; Wt 77.7 kg
[2018-10-19] MEDS ORDERED: CEPH-443 PO (20:26)
[2018-10-19] MEDS ORDERED: LIDOCAINE 1% (MPF) 5 ML VIAL INJ ONE (20:30)
[2018-10-19] MEDS ORDERED: CEFTRIAXONE 1 GM INJ IM ONE (20:30)
[2018-10-19 20:48] VITALS: BP 120/69; PULSE 69; RESP 19
--- NOTE | 2018-10-20 13:06 | ERD ---
ER Documentation Chief Complaint Chief Complaint Complains of urine problems x 3 days HPI 63-year-old male with history of neurogenic bladder presents with complaint of self diagnosed UTI. Patient states that he gets recurrent UTIs for which she is treated with antibiotics. States that he has been here many times before for the same problem. Currently uses catheter to urinate. Denies dysuria or hematuria but does state there is been a unpleasant odor coming from the urine. Denies fevers, chills, nausea, vomiting, diarrhea. Denies any allergies. ROS All systems reviewed and are negative except as per history of present illness. Medications Home Meds Active Scripts Cephalexin* (Keflex*) 500 Mg Capsule, 500 MG PO BID for UTI for 7 Days, CAP Prov:DEUCECHARLESEDDY 10/19/18 Reported Medications [Amlodipine] No Conflict Check, PO 09/28/18 Atenolol* (Atenolol*) 50 Mg Tablet, 50 MG PO BID, #60 TAB 04/22/17 Allergies Allergies: Coded Allergies: No Known Allergy (Verified , 05/16/17) PMhx/Soc History of Surgery: Yes (BILATERAL INGUINAL HERNIA, SPINAL TUMOR REMOVAL, TESTICAL REMOVAL) Anesthesia Reaction: No Hx Neurological Disorder: Yes (NEUROGENIC BLADDER, BENIGN SPINALTUMOR) Hx Respiratory Disorders: No Hx Cardiac Disorders: Yes (HTN) Hx Psychiatric Problems: No Hx Miscellaneous Medical Probl: Yes (MILDLY ELEVATED CHOLESTEROL, HX SEPSIS) Hx Alcohol Use: Yes (OCCASIONAL) Hx Substance Use: No Hx Tobacco Use: No Smoking Status: Never smoker FmHx Family History: No diabetes, No coronary disease, No other Physical Exam Vitals Vital Signs Date Temp Pulse Resp B/P (MAP) Pulse Ox O2 O2 Flow FiO2 Time Delivery Rate 10/19/18 98.9 69 19 120/69 97 Room Air 20:48 (86) 10/19/18 98.0 75 20 129/69 95 16:50 (89) Physical Exam Const: No acute distress Head: Atraumatic Eyes: Normal Conjunctiva ENT: Normal External Ears, Nose and Mouth. Neck: Full range of motion. No meningismus. Resp: Clear to auscultation bilaterally Cardio: Regular rate and rhythm, no murmurs Abd: Soft, non tender, non distended. Normal bowel sounds Skin: No petechiae or rashes Back: No midline or flank tenderness Ext: No cyanosis, or edema : Foreskin is nonedematousor erythematous. Testicles are nonedematous with no tenderness to palpation and no transverse lay. Scrotum is nonedematous to erythematous. Neur: Awake and alert Psych: Normal Mood and Affect Results 24 hrs Laboratory Tests Test 10/19/18 19:45 Urine Color [place] Urine Clarity CLOUDY Urine pH 7.0 Urine Specific [place] 1.014 Urine Ketones TRACE mg/dL Urine Nitrite POSITIVE mg/dL Urine Bilirubin NEGATIVE mg/dL Urine Urobilinogen 1+ mg/dL Urine Leukocyte Esterase 2+ Alie/ul Urine Microscopic RBC 13 /HPF Urine Microscopic WBC > 182 /HPF Urine Squamous Epithelial Cells MANY /HPF Urine Bacteria FEW /HPF Urine Mucus FEW /HPF Urine Hemoglobin 1+ mg/dL Urine Glucose NEGATIVE mg/dL Urine Total Protein 1+ mg/dl Current Medications Medications Dose Sig/Fariba Start Time Status Last (Trade) Ordered Route PRN Stop Time Admin Dose Reason Admin Ceftriaxone 1 gm ONCE ONCE 10/19/18 DC 10/19/18 Sodium IM 20:30 20:30 (Rocephin) 10/19/18 20:31 Lidocaine 5 ml ONCE ONCE 10/19/18 DC 10/19/18 (Xylocaine INJ 20:30 20:30 1% (Mpf)) 10/19/18 20:31 Procedures/MDM 63-year-old male with history of neurogenic bladder presents with complaint of self diagnosed UTI. Patient states that he gets recurrent UTIs for which she is treated with antibiotics. States that he has been here many times before for the same problem. Currently uses catheter to urinate. Denies dysuria or hematuria but does state there is been a unpleasant odor coming from the urine. Denies fevers, chills, nausea, vomiting, diarrhea. Denies any allergies. UA was performed and was consistent with UTI. Urine sent out for culture. Patient stated that he is resistant to Cipro so patient was given Rx for Keflex as well as ceftriaxone IM in the ER. I have low suspicion for pyelonephritis, urosepsis, testicular torsion, or any other emergent condition. Patient discharged with strict ER precautions. Patient advised to follow up with PMD. All questions answered at discharge. Departure Diagnosis: Primary Impression: Urinary tract infection Urinary tract infection type: catheter-associated UTI Indwelling urinary catheter type: unspecified Encounter type: subsequent encounter Qualified Codes: T83.511D - Infection and inflammatory reaction due to indwelling urethral catheter, subsequent encounter; N39.0 - Urinary tract infection, site not specified Condition: Stable Patient Instructions: Understanding Urinary Tract Infections (UTIs) Referrals: REGAN DAVILA MD (PCP) Additional Instructions: FOLLOW UP WITH YOUR PRIMARY CARE PHYSICIAN TOMORROW.Return to this facility if you are not improving as expected. EDDY MERCADO Oct 20, 2018 13:06
== END 2018-10-19 20:49 | disposition home or self-care (01) ==
LOC: FTE 16:30
DX: T83.511D Infection and inflammatory reaction due to indwelling urethral catheter, subsequent encounter (principal); N39.0 Urinary tract infection, site not specified; Y73.2 Prosthetic and other implants, materials and accessory gastroenterology and urology devices associated with adverse incidents; Z85.848 Personal history of malignant neoplasm of other parts of nervous tissue
CPT/HCPCS: 81001; 87086; 96372; 99284; J0696

== ENCOUNTER 2019-01-16 14:20 | Emergency (ER) | payer OTHER ==
[~2019-01-16] VITALS: Ht 185.4 cm; Wt 85.0 kg
[~2019-01-16 14:20] MED LIST changes: +CEPH-443 PO
[2019-01-16 14:23] VITALS: BP 163/88; PULSE 96; RESP 20; Ht 185.4 cm; Wt 85.0 kg
[2019-01-16] MEDS ORDERED: CIPR500T4 PO (17:40)
[2019-01-16] MEDS ORDERED: CEFTRIAXONE 1 GM INJ IM ONE (18:00)
[2019-01-16] MEDS ORDERED: LIDOCAINE 1% (MDV) 20 ML INJ SC ONE (18:00)
--- NOTE | 2019-01-16 21:59 | ERD ---
ER Documentation Chief Complaint Chief Complaint dysuria x 5 days HPI 63-year-old male presents to the emergency department complaining of intermittent dysuria for the past5 days. He states he has history of multiple UTIs in the past due to neurogenic bladder. He denies any fevers, back pain, abdominal pain nausea, vomiting, diarrhea, or other symptoms at this time. Symptoms are moderate in severity. ROS All systems reviewed and are negative except as per history of present illness. Medications Home Meds Active Scripts Ciprofloxacin Hcl* (Ciprofloxacin Hcl*) 500 Mg Tablet, 500 MG PO BID for 10 Days, TAB Prov:EDDY STEPHENSON PA-C 01/16/19 Cephalexin* (Keflex*) 500 Mg Capsule, 500 MG PO BID for UTI for 7 Days, CAP Prov:EDDY MERCADO 10/19/18 Reported Medications [Amlodipine] No Conflict Check, PO 09/28/18 Atenolol* (Atenolol*) 50 Mg Tablet, 50 MG PO BID, #60 TAB 04/22/17 Allergies Allergies: Coded Allergies: No Known Allergy (Verified , 05/16/17) PMhx/Soc History of Surgery: Yes (BILATERAL INGUINAL HERNIA, SPINAL TUMOR REMOVAL, TESTICAL REMOVAL) Anesthesia Reaction: No Hx Neurological Disorder: Yes (NEUROGENIC BLADDER, BENIGN SPINALTUMOR) Hx Respiratory Disorders: No Hx Cardiac Disorders: Yes (HTN) Hx Psychiatric Problems: No Hx Miscellaneous Medical Probl: Yes (MILDLY ELEVATED CHOLESTEROL, HX SEPSIS) Hx Alcohol Use: Yes (OCCASIONAL) Hx Substance Use: No Hx Tobacco Use: No Smoking Status: Never smoker FmHx Family History: No diabetes Physical Exam Vitals Vital Signs Date Temp Pulse Resp B/P (MAP) Pulse Ox O2 O2 Flow FiO2 Time Delivery Rate 01/16/19 97.8 96 20 163/88 96 14:23 (113) Physical Exam Const: No acute distress Head: Atraumatic Eyes: Normal Conjunctiva ENT: Normal External Ears, Nose and Mouth. Neck: Full range of motion. No meningismus. Resp: Clear to auscultation bilaterally Cardio: Regular rate and rhythm, no murmurs Abd: Soft, non tender, non distended. Normal bowel sounds. No rebound tenderness or guarding. No McBurney's point tenderness. Skin: No petechiae or rashes Back: No midline or flank tenderness. No CVA tenderness. Ext: No cyanosis, or edema Neur: Awake and alert Psych: Normal Mood and Affect Results 24 hrs Laboratory Tests Test 01/16/19 17:39 Bedside Urine pH (LAB) 6.5 Bedside Urine Protein (LAB) 3+ Bedside Urine Glucose (UA) Negative Bedside Urine Ketones (LAB) 2+ Bedside Urine Blood Trace-intact Bedside Urine Nitrite (LAB) Positive Bedside Urine Leukocyte Esterase (L 3+ Current Medications Medications Dose Sig/Fariba Start Time Status Last (Trade) Ordered Route PRN Stop Time Admin Dose Reason Admin Ceftriaxone 1 gm ONCE ONCE 01/16/19 DC 01/16/19 Sodium IM 18:00 18:01 (Rocephin) 01/16/19 18:01 Lidocaine 20 ml ONCE ONCE 01/16/19 DC 01/16/19 (Xylocaine SC 18:00 18:01 1% (Mdv) 20 01/16/19 18:01 ml) Procedures/MDM 63-year-old male presents the emergency department with signs and symptoms most consistent with uncomplicated urinary tract infection. No evidence of severe pyelonephritis, sepsis, or other emergencies. Patient administered IM Rocephin 1 g in the department. He was stable for discharge and further outpatient management with a prescription for ciprofloxacin. Patient advised to have close follow-up with urologist as an outpatient. He was advised to return the department immediately for any new or worsening or concerning symptoms. He understands and agrees with plan. Patient's blood pressure was elevated (>120/80) but appears stable without evidence of hypertension emergency or urgency. The patient is to follow-up and pursue outpatient monitoring and therapy with their primary care physician within 1 week and return immediately if they have any new, worsening, or concerning symptoms. Departure Diagnosis: Primary Impression: Urinary tract infection Condition: Fair Patient Instructions: Understanding Urinary Tract Infections (UTIs) Referrals: REGAN DAVILA MD (PCP) Additional Instructions: SPECIALIST: YOU HAVE A MEDICAL CONDITION WHICH REQUIRES YOU TO SEE A SPECIALIST WITHIN THE NEXT 1-2 DAYS. PLEASE FOLLOW UP WITH YOUR PRIMARY PHYSICIAN FOR REFFERAL.IF YOU DO NOT HAVE A PRIMARY CARE PHYSICIAN AND/OR YOU CAN NOT AFFORD TO SEE A PHYSICIAN THE FOLLOWING RESOURCES HAVE BEEN SUPPLIED TO YOU. IT IS YOUR RESPONSIBILITY TO BE SEEN BY THE SPECIALIST: UROLOGIST EDDY STEPHENSON PA-C Jan 16, 2019 21:59
== END 2019-01-16 18:10 | disposition home or self-care (01) ==
LOC: FTE 14:20
DX: N39.0 Urinary tract infection, site not specified (principal); I10 Essential (primary) hypertension
CPT/HCPCS: 81003; J0696; 96372

== ENCOUNTER 2019-04-17 02:48 | Emergency (ER) | payer OTHER ==
[~2019-04-17] VITALS: Ht 185.4 cm; Wt 77.2 kg
[~2019-04-17 02:48] MED LIST changes: +CIPR500T4 PO; +NITR-58 PO; +PHEN-537 PO
[2019-04-17 03:02] VITALS: BP 150/82; PULSE 77; RESP 16; Ht 185.4 cm; Wt 77.2 kg
== END 2019-04-17 04:55 | disposition home or self-care (01) ==
LOC: FTE 02:48
DX: N30.01 Acute cystitis with hematuria (principal); I10 Essential (primary) hypertension
CPT/HCPCS: 81001; 99283